=== PATIENT | male | born 1955 | race Hispanic/Latino ===

== ENCOUNTER 2018-11-30 03:14 | Inpatient (IN) | payer OTHER, SELFPAY ==
[2018-11-30 04:26] LABS: #Basophils 0.1 thou/uL (0.0-0.2); #Eosinphils 0.4 thou/uL (0.0-0.7); #Lymphocytes 1.8 thou/uL (1.20-3.40); #Monocytes 0.8 thou/uL (0.11-0.59); #Neutrophils 6.1 thou/uL (1.40-6.50); %Basophils 0.7 % (0.0-1.0); %Eosinophils 4.2 % (0.0-10.0); %Monocytes 8.6 % (0.0-10.0); %Neutrophils 66.6 % (42.0-75.0); Hemoglobin 15.3 g/dL (14.0-18.0); Mean Corpuscular HGB CONC 33.5 g/dL (32.0-36.0); Mean Corpuscular Hemoglobin 31.5 pg (27.0-31.0); Mean Corpuscular Volume 94.2 fL (78.0-98.0); Mean Platelet Volume 8.9 fL (7.4-10.4); Platelet Count 165 thou/uL (130-400); RBC Distribution Width 12.6 % (11.5-14.5); Red Blood Cell (RBC) Count 4.87 mill/uL (4.70-6.10); White Blood Cell (WBC) Count 9.2 thou/uL (4.8-10.8)
[2018-11-30 04:43] LABS: Bilirubin Negative (Negative); Blood, Urine Negative (Negative); Clarity Clear (Clear); Glucose, Urine (Dipstick) Normal (Negative); Leukocyte Negative Leu/uL (Negative); Nitrite Negative (Negative); Protein, Urine (Dipstick) 30 mg/dL (Neg-Trace); RBC/HPF 0-3 HPF (0-3); Squamous Epithelial 0-3 HPF (0-3); Urobilinogen Normal mg/dL (Less than 2)
[2018-11-30 04:46] LABS: Acetaminophen Less than 6.0 mcg/mL (10.0-30.0); Alcohol Less than 10 mg/dL (Less than 10); Salicylate Less than 8.0 mg/dL (15.0-30.0)
[2018-11-30 04:47] LABS: ALT (SGPT) 34 U/L (8-55); AST (SGOT) 22 U/L (5-34); Albumin 4.2 g/dL (3.4-4.8); Alkaline Phosphatase 72 U/L (40-110); Anion Gap 16 mmol/L (10-20); BUN (Urea Nitrogen) 13 mg/dL (8.4-25.7); Bilirubin, Total 0.7 mg/dL (0.2-1.2); Calc. Creatinine Clearance 0 mL/min (70-130); Calcium 9.3 mg/dL (7.8-10.44); Carbon Dioxide 21 mmol/L (23-31); Chloride 107 mmol/L (98-107); Estimated GFR-MDRD Greater than 90; Globulin 3.1 g/dL (2.4-3.5); Glucose 104 mg/dL (80-115); Magnesium 2.1 mg/dL (1.6-2.6); Potassium 3.9 mmol/L (3.5-5.1); Protein, Total 7.3 g/dL (5.8-8.1); Sodium 140 mmol/L (136-145)
[2018-11-30 04:51] LABS: Amphetamine Not Detected (NotDetected); Barbiturates Screen Not Detected (NotDetected); Benzodiazepine Screen Not Detected (NotDetected); Cocaine Metabolite Screen Not Detected (NotDetected); Medtox Control Line Valid? VALID (VALID); Medtox Reader # READER 1; Methadone Not Detected (NotDetected); Methamphetamine Not Detected (NotDetected); Opiate Screen Not Detected (NotDetected); Oxycodone Screen Not Detected (NotDetected); Phencyclidine (PCP) Not Detected (NotDetected); THC/Cannabinoid Screen Not Detected (NotDetected); Tricyclic Screen Not Detected (NotDetected)
[2018-11-30 05:12] LABS: Bacteria/HPF 1+ HPF (None Seen)
[2018-11-30] MEDS ORDERED: Ondansetron PF 4 MG/2 ML Vial IVP PRN ×2 (06:53→08:46)
[2018-11-30] MEDS ORDERED: Ondansetron ODT 4 MG TAB PO PRN ×2 (06:53→08:46)
[2018-11-30] MEDS ORDERED: Acetaminophen 325 MG TAB PO PRN ×2 (06:54→08:46)
[2018-11-30] MEDS ORDERED: HYDROcodone/Acetaminophen 5/325 mg Tablet PO PRN ×2 (06:54)
[2018-11-30 07:50] VITALS: BMI 29.7
--- NOTE | 2018-11-30 08:28 | CT ---
PRELIMINARY REPORT/[facility]/EMERGENCY AFTER HOURS PROCEDURE: PROCEDURE INFORMATION: Exam: CT Head Without Contrast Exam date and time: 11/30/2018 3:45 AM Clinical history: 63 years old, male; Patient HX: Unwitnessed seizure event, PT a/o x4. TECHNIQUE: Imaging protocol: Computed tomography of the head without contrast. COMPARISON: No relevant prior studies available. FINDINGS: Brain: Volume loss and chronic small vessel ischemic change. No brain edema. No intracranial hemorrha ge. Ventricles: Normal. No ventriculomegaly. Bones/joints: Unremarkable. No acute fracture. Sinuses: Incidental sinus mucosal thickening present. No fluid levels to indicate sinusitis. Mastoid air cells: Visualized mastoid air cells are well aerated. Soft tissues: Unremarkable. IMPRESSION: No acute brain findings. Thank you for allowing us to participate in the care of your patient. Dictated and Authenticated by: Bon Carvajal MD 11/30/2018 3:52 AM Central Time ([place] & [place]) FINAL REPORT CT BRAIN WITHOUT CONTRAST: I agree with the preliminary report given by Dr. Bon Carvajal of [facility]. POS: OFF
[2018-11-30] MEDS ORDERED: Lorazepam 2 MG/ML VIAL SLOW IVP PRN (08:41)
[2018-11-30] MEDS ORDERED: Acetaminophen 650 MG Suppository PR PRN (08:46)
--- NOTE | 2018-11-30 08:59 | PDOC.HHP ---
Hospitalist HPI - History of Present Illness I think I was dreaming and yelling History of Present Illness: Mr. Richmond was brought from half-way due to a suspected seizure, early hours this morning. He denies any history of seizures in the past. He states he has been very worried about his sister who is in her 70s and recalls having a vivid dream about her last night. He is unsure if he was yelling in his sleep. He recalls being woken and recalls being brought into the ED but was unsure as to why. He reports being scared and confused to where he was going because he is being released soon. He reportedly was found post-ictal and had appeared to have lost control of his bladder. Per patient he had a cup of water and dropped it in his lap. Denies baby drowsy or confused. States he was asleep and was woken abruptly. He has continued to feel well in himself since coming. in. Reports having high blood pressure in the past but it improved and so he has not been compliant with his BP meds. He states his BP tends to go up when he is stressed and otherwise is normal. He is compliant with his cholesterol medications. ED Course: In the ED he underwent initial investigations including laboratory studies including CBC and CMP which was unremarkable. UA was unremarkable as well as a urine drug screen. CT Brain was done and showed no acute intracranial abnormalities. Hospitalist ROS - Review of Systems Constitutional: denies: fever, chills, sweats, weakness, malaise, other Eyes: denies: pain, vision change, conjunctivae inflammation, eyelid inflammation, redness, other ENT: denies: ear pain, ear discharge, nose pain, nose discharge, nose congestion , mouth pain, mouth swelling, throat pain, throat swelling Respiratory: denies: cough, dry, shortness of breath, hemoptysis, SOB with excertion, pleuritic pain, sputum, wheezing Cardiovascular: denies: chest pain, palpitations, orthopnea, paroxysmal noc. dyspnea, edema, light headedness Gastrointestinal: denies: nausea, vomiting, abdominal pain, diarrhea, constipation, melena, hematochezia, other Genitourinary: denies: dysuria, frequency, incontinence, hematuria, retention Musculoskeletal: denies: neck pain, shoulder pain, arm pain, back pain, hand pain, leg pain, foot pain Skin: denies: rash, lesions Neurological: denies: weakness, numbness, incoordination, change in speech, confusion, seizures - Medication Medications: HOME MEDICATIONS: 1. Aspirin 81 mg PO daily. 2. Atorvastatin 40 mg PO daily. 3. Lisinopril 20 mg PO daily. ALLERGIES: No known drug allergies. Hospitalist History - Past Medical History Source: patient Cardiac: reports: HTN, Hyperlipidemia Pulmonary: reports: no pertinent history VACUUM SYSTEM TESTER: reports: no pertinent history Gastrointestinal: reports: no pertinent history Heme/Onc: reports: no pertinent history Hepatobiliary: reports: no pertinent history Psych: reports: no pertinent history Musculoskeletal: reports: no pertinent history Rheumatologic: reports: no pertinent history Infectious Disease: reports: no pertinent history ENT: reports: no pertinent history Renal/: reports: no pertinent history Endocrine: reports: no pertinent history Dermatology: reports: no pertinent history - Past Surgical History Past Surgical History: reports: no pertinent history - Family History Family History: reports: hyperlipidemia, hypertension - Social History Smoking Status: Never smoker Alcohol: reports: None Drugs: reports: none Living Situation: Other (incarcerated) Activity level: independent ambulation - Exam General Appearance: NAD, awake alert Eye: PERRL, anicteric sclera ENT: normocephalic atraumatic, no oropharyngeal lesions, moist mucosa Neck: supple, symmetric, no JVD, no thyromegaly, no lymphadenopathy Heart: RRR, no murmur, no gallops, no rubs, normal peripheral pulses Respiratory: CTAB, no wheezes, no rales, no ronchi, normal chest expansion, no tachypnea Gastrointestinal: soft, non-tender, non-distended, normal bowel sounds, no palpable masses, no guarding, no rigidity Extremities: no cyanosis, no clubbing, no edema Skin: normal turgor, no lesions, no rashes Neurological: cranial nerve grossly intact, normal sensation to touch, no weakness, no focal deficits Musculoskeletal: normal tone, normal strength, no muscle wasting Psychiatric: normal affect, normal behavior, A&O x 3 Hospitalist Results - Labs Result Diagrams: 11/30/18 04:12 11/30/18 04:12 Lab results: WBC 9.2 thou/uL (4.8-10.8) 11/30/18 04:12 Hgb 15.3 g/dL (14.0-18.0) 11/30/18 04:12 Hct 45.8 % (42.0-52.0) 11/30/18 04:12 MCV 94.2 fL (78.0-98.0) 11/30/18 04:12 Plt Count 165 thou/uL (130-400) 11/30/18 04:12 Neutrophils % 66.6 % (42.0-75.0) 11/30/18 04:12 Sodium 140 mmol/L (136-145) 11/30/18 04:12 Potassium 3.9 mmol/L (3.5-5.1) 11/30/18 04:12 Chloride 107 mmol/L (98-107) 11/30/18 04:12 Carbon Dioxide 21 mmol/L (23-31) L 11/30/18 04:12 BUN 13 mg/dL (8.4-25.7) 11/30/18 04:12 Creatinine 0.79 mg/dL (0.7-1.3) 11/30/18 04:12 Glucose 104 mg/dL (80-115) 11/30/18 04:12 Calcium 9.3 mg/dL (7.8-10.44) 11/30/18 04:12 Total Bilirubin 0.7 mg/dL (0.2-1.2) 11/30/18 04:12 AST 22 U/L (5-34) 11/30/18 04:12 ALT 34 U/L (8-55) 11/30/18 04:12 Alkaline Phosphatase 72 U/L (40-110) 11/30/18 04:12 Troponin I Less than 0.010 ng/mL (< 0.028) 11/30/18 04:12 Serum Total Protein 7.3 g/dL (5.8-8.1) 11/30/18 04:12 Albumin 4.2 g/dL (3.4-4.8) 11/30/18 04:12 Urine Ketones Trace mg/dL (Negative) A 11/30/18 04:21 Urine Blood Negative (Negative) 11/30/18 04:21 Urine Nitrite Negative (Negative) 11/30/18 04:21 Ur Leukocyte Esterase Negative Belkis/uL (Negative) 11/30/18 04:21 Urine RBC 0-3 HPF (0-3) 11/30/18 04:21 Urine WBC 7-10 HPF (0-3) A 11/30/18 04:21 Ur Squamous Epith Cells 0-3 HPF (0-3) 11/30/18 04:21 Urine Bacteria 1+ HPF (None Seen) 11/30/18 04:21 - Radiology Interpretation CT scan - head Status: report reviewed by me Hospitalist H&P A/P - Problem (1) Seizure Code(s): R56.9 - UNSPECIFIED CONVULSIONS Status: Acute Assessment and Plan: Suspected new onset seizure early hours this am. I have added prolactin level to labs done this am. Neuro consulted and MRI brain ordered. (2) Hypertension Code(s): I10 - ESSENTIAL (PRIMARY) HYPERTENSION Status: Chronic Assessment and Plan: Patient noncompliant with medications. States he only feels unwell when stressed which is when he will take his meds. BP 160s systolic. Restart home medications. Monitor BP. (3) Hyperlipidemia Code(s): E78.5 - HYPERLIPIDEMIA, UNSPECIFIED Status: Chronic Assessment and Plan: Resume atorvastatin which he does take regularly. - Plan Plan: GI prophylaxis with Famotidine. DVT Prophylaxis with mechanical SCDs. Awaiting neuro review and further imaging. CODE STATUS: FULL. Unable to provide who would be his surrogate decision maker.
[2018-11-30] MEDS ORDERED: Lisinopril 20 MG TAB PO SCH (09:00)
[2018-11-30] MEDS ORDERED: Famotidine/PF 20 mg/2ml Vial SLOW IVP SCH (09:00)
[2018-11-30] MEDS ORDERED: Aspirin 81 mg Enteric Coated Tablet PO SCH (09:00)
--- NOTE | 2018-11-30 11:39 | MRI ---
MRI BRAIN WITH AND WITHOUT IV CONTRAST: Date: 11/30/18 HISTORY: Seizure disorder. FINDINGS: Correlation is made with CT brain from earlier today. There is ventricular sulcal prominence. There are multiple foci of T2 prolongation in the periventric ular white matter consistent with chronic small vessel ischemic disease. No restricted diffusion is n oted. Ventricular size is appropriate and the basilar cisterns are patent. No evidence of infarct, he morrhage, mass, midline shift, or abnormal extra-axial fluid collections are seen. No abnormal postco ntrast enhancement is noted. There is mucosal disease in the paranasal sinuses. IMPRESSION: 1. No evidence of acute intracranial process or mass. 2. Chronic small vessel ischemic disease. POS: OFF
[2018-11-30] MEDS ORDERED: Gadobenate Dimeglumine 529 MG/1 ML (20ML VIAL) ONE (13:50)
[2018-11-30 15:50] VITALS: BP 133/81; TEMP 97.9
--- NOTE | 2018-11-30 18:19 | DIS ---
DATE OF ADMISSION: 11/30/2018 DATE OF DISCHARGE: 11/30/2018 PRIMARY CARE PHYSICIAN: None. DISCHARGE DIAGNOSES: 1. Uncontrolled hypertension. 2. Hyperlipidemia. HOSPITAL COURSE: Mr. Richmond is a 63-year-old gentleman, who was brought into the emergency department due to concern for possible seizure. The patient apparently was having a bad dream as he has been extremely worried about a sister recently and states he was reportedly shaking or screaming in his sleep. He woke up to being placed in handcuffs and taken off the bed. The patient was suspected to have had a seizure due to presumed urinary incontinence. The patient states that he had dropped the cup of water he had been sipping through the mouth onto his lap. States he did not urinate on himself and has full recollection of events since waking up. He has a history of hypertension, but states he has not been taking his blood pressure medicine due to feeling well without any symptoms. We had an extensive conversation regarding him being compliant with blood pressure medicine as symptoms are not always evident when blood pressure is uncontrolled. The patient has been diligent about taking his cholesterol medications. He is due for release from incarceration soon. He remained asymptomatic throughout his hospital stay and is without any complaints. His blood pressure has been elevated in the 160s, but improved once home medication resumed. He should be on lisinopril 20 mg daily. He did undergo investigations including laboratory studies, which were unremarkable. Liver function studies were normal. Magnesium was normal. Potassium unremarkable. Urinalysis was done, mentioned no evidence of UTI. A urine drug screen was done as well which was negative, and he had less than 10 alcohol level. Prolactin was undergone as well and that was normal. Imaging was done including CT of the brain showing no acute intracranial abnormalities. An MRI of the brain was done as well showing chronic small-vessel ischemic disease, otherwise no evidence of acute intracranial process or mass. He was seen by Dr. Currie of Neurology who has cleared him to return to the penit[facility]iary with no new medications recommended. No further followup necessary. The patient was seen and examined on day of discharge. CONDITION: Stable. ACTIVITY: As tolerated. DIET: Heart healthy. FOLLOWUP: The patient advised to follow up with a primary care physician at the penitentiary within 1 week. DISCHARGE MEDICATIONS: The patient advised to resume home medications including lisinopril. DISPOSITION: The patient medically cleared for discharge back to custody on 11/30/2018. Job ID: [id number]
[2018-11-30] MEDS ORDERED: Atorvastatin Calcium 40 MG TAB PO SCH (21:00)
--- NOTE | 2018-11-30 23:49 | CON ---
DATE OF CONSULTATION: 11/30/2018 CONSULTING PHYSICIAN: Hospitalist Service. IMPRESSION: No evidence to suspect this gentleman had a seizure. PLAN: He can be discharged back to his unit. HISTORY OF PRESENT ILLNESS: Mr. Richmond is a 63-year-old man, who is currently an inmate. He has a history of hypertension and hyperlipidemia. He apparently had a nightmare and knocked over a glass of water on himself. The staff thought that he possibly had a seizure because they thought he wet his pants. He was brought to the hospital for evaluation. CT scan of the brain was normal. All his lab work was in normal range. He has been afebrile since admission. He has had a MRI of the brain done, which showed moderate amount of small-vessel ischemic changes, but no acute abnormalities. He denies any past history of seizures. He has no postictal symptoms. PAST MEDICAL HISTORY: As listed above. ALLERGIES: NONE. SOCIAL HISTORY: He is currently an inmate. FAMILY HISTORY: Noncontributory. REVIEW OF SYSTEMS: Ten-system review of systems is otherwise negative. PHYSICAL EXAMINATION: VITAL SIGNS: Blood pressure 133/81, pulse 67, respirations 16, and temperature 97.9. HEENT: Pupils are equal and reactive. Conjunctivae clear. Oropharynx clear. NECK: Supple. EXTREMITIES: No cyanosis or edema. NEUROLOGIC: He is alert and cooperative. His speech is fluent and clear. He is primarily Turkmen speaking. He had no focal deficits. No abnormal movements were seen. SUMMARY: Middle-aged man who was brought in for dubious reasons. His workup neurologically is fine. I do not see any reason for change in treatment. Job ID: [id number]
== END 2018-11-30 19:35 | DRG 305 ==
LOC: ERS 03:14 → 2SE 06:44
PROVIDERS: ADMIT Hospitalist; ATTEND Hospitalist
DX: I10 Essential (primary) hypertension (principal); E78.5 Hyperlipidemia, unspecified; Z79.82 Long term (current) use of aspirin; Z91.14 Patient's other noncompliance with medication regimen
CPT/HCPCS: 36415; 70450; 70553; 80053; 80306; 80307; 81003; 81015; 83735; 84146; 84443; 84484; 85025; 93005; A9577; S0028